=== PATIENT | female | born 1940 | race Caucasian/White ===

== ENCOUNTER 2017-12-11 05:38 | Day surgery (SDC) | payer MEDICARE, MEDICAID ==
[~2017-12-11] VITALS: Ht 160 cm; Wt 100.7 kg
[~2017-12-11 05:38] MED LIST: ALBUAER3 IN; CETI1TAB36 PO; CHOL500021 OR; DIPH50CA31 OR; DOCU-55 PO; DOCU1CAP31 PO; DONE5TAB31 PO; FERR-20 PO; HYDR-3682 PO; HYDR-531 PO; LISI-275 PO; METF-370 PO; METH500T6 PO; MIRA25TA OR; NAS17NSL; OMEP20TA PO; SIME80CH6 PO
[2017-12-11] MEDS ORDERED: CLINDAMYCIN 600MG IV 50 ML IV ONE (07:15)
[2017-12-11] MEDS ORDERED: LIDOCAINE 1% HCL (LOCAL ANESTH.) INJ 20ML MDV ONE (07:18)
[2017-12-11] MEDS ORDERED: SUCCINYLCHOLINE CHLORIDE 20 MG/ML 10ML VIAL IV ONE (07:19)
[2017-12-11] MEDS ORDERED: BUPIVACAINE 0.25% INJ 50ML VIAL ONE (07:20)
[2017-12-11] MEDS ORDERED: MIDAZOLAM HCL 1MG/1ML-2 ML VIAL ONE (07:21)
[2017-12-11] MEDS ORDERED: PROPOFOL 10 MG/ML 20 ML IV ONE (07:21)
[2017-12-11] MEDS ORDERED: ROCURONIUM 10MG/ML 10ML VIAL IV ONE (07:21)
[2017-12-11] MEDS ORDERED: ePHEDrine SULFATE 50 MG/ML AMP ONE (07:37)
[2017-12-11] MEDS ORDERED: ACCU-CHEK COMFORT CURVE STRIP VI ONE (07:45)
[2017-12-11] MEDS ORDERED: ePHEDrine SULFATE 50 MG/ML AMP IV PRN (07:45)
[2017-12-11] MEDS ORDERED: ONDANSETRON HCL 4 MG/2 ML VIAL IV ONE (07:45)
[2017-12-11] MEDS ORDERED: NALOXONE HCL 0.4 MG/ML VIAL IV PRN (07:45)
[2017-12-11] MEDS ORDERED: fentaNYL CITRATE 100 MCG/2 ML VL ONE (07:48)
[2017-12-11] MEDS ORDERED: GLYCOPYRROLATE 0.2 MG/ML 1ML VIAL ONE (08:01)
[2017-12-11] MEDS ORDERED: NEOSTIGMINE 1 MG/ML INJ (10mg/10ML VIAL) ONE (08:01)
[2017-12-11 09:00] VITALS: BP 111/81
[2017-12-11] MEDS ORDERED: fentaNYL CITRATE 100 MCG/2 ML VL IV ONE (10:00)
== END 2017-12-11 09:15 | disposition home or self-care (01) ==
LOC: SUR 05:38
PROVIDERS: ATTEND Orthopaedic Surgery Adult Reconstructive Orthopaedic Surgery
DX: G56.02 Carpal tunnel syndrome, left upper limb (principal); E66.01 Morbid (severe) obesity due to excess calories; J45.909 Unspecified asthma, uncomplicated; E11.9 Type 2 diabetes mellitus without complications; D64.9 Anemia, unspecified; M19.90 Unspecified osteoarthritis, unspecified site; G47.33 Obstructive sleep apnea (adult) (pediatric); K21.9 Gastro-esophageal reflux disease without esophagitis; Z88.6 Allergy status to analgesic agent; Z68.39 Body mass index [BMI] 39.0-39.9, adult; Z88.1 Allergy status to other antibiotic agents; Z79.891 Long term (current) use of opiate analgesic; Z79.01 Long term (current) use of anticoagulants; Z79.2 Long term (current) use of antibiotics; Z79.899 Other long term (current) drug therapy; Z79.84 Long term (current) use of oral hypoglycemic drugs; Z83.3 Family history of diabetes mellitus; Z82.49 Family history of ischemic heart disease and other diseases of the circulatory system; Z90.49 Acquired absence of other specified parts of digestive tract
CPT/HCPCS: 29848; 82962; J0330; J2001; J2250; J2405; J2704; J3010; J3490

== ENCOUNTER 2019-03-08 19:23 | Inpatient (IN) | payer MEDICARE, MEDICAID | END 2019-03-16 17:09 | disposition home or self-care (01) | LOC: TELE 19:24 → TELE-CENTR 03-09 13:47 → ER 19:23 | PROC: B41G1ZZ Fluoroscopy of Left Lower Extremity Arteries using Low Osmolar Contrast (ICD-10-PCS; principal; ~2019-03-08) | PROC: B41F1ZZ Fluoroscopy of Right Lower Extremity Arteries using Low Osmolar Contrast (ICD-10-PCS; ~2019-03-08) | DX: I73.9 Peripheral vascular disease, unspecified (principal); N17.0 Acute kidney failure with tubular necrosis; I50.43 Acute on chronic combined systolic (congestive) and diastolic (congestive) heart failure; L03.116 Cellulitis of left lower limb; I13.0 Hypertensive heart and chronic kidney disease with heart failure and stage 1 through stage 4 chronic kidney disease, or unspecified chronic kidney disease; E11.51 Type 2 diabetes mellitus with diabetic peripheral angiopathy without gangrene; E11.22 Type 2 diabetes mellitus with diabetic chronic kidney disease; L03.115 Cellulitis of right lower limb; Z79.84 Long term (current) use of oral hypoglycemic drugs; I25.10 Atherosclerotic heart disease of native coronary artery without angina pectoris; Z95.5 Presence of coronary angioplasty implant and graft; N18.3 Chronic kidney disease, stage 3 (moderate); D50.9 Iron deficiency anemia, unspecified; E78.5 Hyperlipidemia, unspecified ==

== ENCOUNTER → 2019-05-28 | Outpatient (CLI) | payer MEDICARE, MEDICAID ==
[~2019-05-28] VITALS: Ht 30.5 cm; Wt 0.5 kg
[~2019-05-28] MED LIST changes: +ASPI325T4 PO; +BACITRACIN TOP OINT 1 UD PKG TOP ONE; +CYANOCOBALAMIN (B-12) 1000 MCG/1 ML VIAL IM ONE; +CYANOCOBALAMIN (B-12) 1000 MCG/1 ML VIAL ONE; -DIPH50CA31 OR; +GABA100C9 PO; +GLYB2.5T8 PO; -METF-370 PO; +RANI300C7 PO; +TICA90TA PO; +VANCOMYCIN 1GM/250ML 250 ML IV ONE; +cefTRIAXone 1GM/50ML D5W 50 ML IV ONE
[2019-05-28 11:00] VITALS: BP 129/55
--- NOTE | 2019-05-28 11:00 | NUR ---
CHF PT ARRIVED AT THE [facility]F CLINIC FROM BACK OFFICE FOR ANTIBIOTIC THERAPY AND UNNA BOOTS. PT APPEARS TO HAVE CELLULITIS ON LEGS WILL BE IN CLINIC FOR ANTIBIOTIC THERAPY OVER THE NEXT WEEK
--- NOTE | 2019-05-28 11:15 | NUR ---
IV insertion IV access obtained, via clean sterile technique by inserting 22 gauge catheter at after attempt(s). IV secured properly. No trauma to site. Patient tolerated procedure well.
--- NOTE | 2019-05-28 12:00 | NUR ---
Wound Care Wound care provided per MD order. Patient tolerated well and verbalized dressing care instructions. Follow up in clinic as directed. See e-MAR for medications given during this visit. UNNA BOOTS APPLIED BILATERALLY PT TOLERATED WELL
[2019-05-28 12:04] LABS: Basophils # (auto) 0.1 uL; Eosinophils # (auto) 0.3 uL; Lymphocytes # (auto) 1.3 uL; Monocytes # (auto) 0.7 uL; Platelet Count (auto) 238 10^3/uL (140-450); Red Blood Cells 3.39 10^6/uL (4.0-5.20)
[2019-05-28 12:12] LABS: Eosinophils % (auto) 5.7 % (0.0-7.0); Hematocrit 26.8 % (36.0-46.0); Hemoglobin 8.9 g/dL (12.2-16.2); Lymphocytes % (auto) 24.7 % (10.0-50.0); Mean Corpuscular Hemoglobin 26.1 pg (28.0-32.0); Mean Corpuscular Volume 79.2 fL (80.0-100.0); Monocytes % (auto) 12.4 % (0.0-12.0); Neutrophils % (auto) 55.2 % (37.0-80.0); Red Cell Distribution Width 14.1 % (11.8-14.3); White Blood Cell 5.5 10^3/uL (4.4-10.8)
[2019-05-28 12:17] LABS: BUN/Creatinine Ratio 22.9; Calcium 8.6 mg/dL (8.5-10.1); Magnesium 2.5 mg/dL (1.6-2.6); Potassium 4.9 mmol/L (3.5-5.1)
--- NOTE | 2019-05-28 13:50 | NUR ---
IV removal IV DC'd with sterile technique, catheter fully intact. Pressure dressing applied to site. Patient tolerated procedure well. Discharged with aftercare instructions per MD. NOTE:
[2019-05-28 13:58] VITALS: BP 127/71
--- NOTE | 2019-05-28 13:58 | NUR ---
Discharge Instructions See e-MAR for any mediations given with this visit. Patient education given on disease process. Patient verbalized understanding. Previous labs reviewed. Patient discharged in stable condition with after care instructions and follow up appointment[place] [id number] [place] IV [id number] VITAMIN B12 IM LOT # [id number] EXP 01/13 UNNA BOOTS APPLIED BILATERALLY
== END | disposition home or self-care (01) ==
LOC: CHF HDHVI 10:59
PROVIDERS: ATTEND Internal Medicine
DX: D64.9 Anemia, unspecified (principal); R60.0 Localized edema; R53.83 Other fatigue; K90.9 Intestinal malabsorption, unspecified; I11.0 Hypertensive heart disease with heart failure; I50.9 Heart failure, unspecified; Z79.899 Other long term (current) drug therapy
CPT/HCPCS: 36415; 80048; 82306; 83036; 83735; 85025; 96365; 96367; 96372; G0463; J0696; J3370; J3420; 96375

== ENCOUNTER → 2019-05-29 | Outpatient (CLI) | payer MEDICARE, MEDICAID ==
[~2019-05-29] MED LIST changes: -BACITRACIN TOP OINT 1 UD PKG TOP ONE; -CYANOCOBALAMIN (B-12) 1000 MCG/1 ML VIAL IM ONE; -CYANOCOBALAMIN (B-12) 1000 MCG/1 ML VIAL ONE; -VANCOMYCIN 1GM/250ML 250 ML IV ONE
[2019-05-29 09:50] VITALS: BP 122/59
--- NOTE | 2019-05-29 09:50 | NUR ---
CHF PT IN CHF CLINIC FOR TX AND FOLLOW UP. STAT LABS DONE AND ULTRASOUND SCHEDULED FOR LOWER EXTREMITIES. A/O X 4 O DISTRESS
--- NOTE | 2019-05-29 10:10 | NUR ---
IV insertion IV access obtained, via clean sterile technique by inserting 22 gauge catheter at after attempt(s). IV secured properly. No trauma to site. Patient tolerated procedure well.
[2019-05-29 10:52] LABS: Eosinophils # (auto) 0.3 uL; Lymphocytes # (auto) 1.3 uL; Lymphocytes % (auto) 23.6 % (10.0-50.0); Mean Corpuscular Hgb Conc. 32.7 g/dL (32.0-36.0); Monocytes # (auto) 0.6 uL; Nucleated Red Blood Cells % 0.1 %
[2019-05-29 10:54] LABS: Basophils # (auto) 0.2 uL; Basophils % (auto) 3.3 % (0.0-2.0); Hematocrit 27.5 % (36.0-46.0); Mean Corpuscular Hemoglobin 26.2 pg (28.0-32.0); Mean Corpuscular Volume 80.3 fL (80.0-100.0); Monocytes % (auto) 10.7 % (0.0-12.0); Neutrophils % (auto) 56.4 % (37.0-80.0); Platelet Count (auto) 252 10^3/uL (140-450); Red Blood Cells 3.42 10^6/uL (4.0-5.20); Red Cell Distribution Width 14.4 % (11.8-14.3); White Blood Cell 5.4 10^3/uL (4.4-10.8)
[2019-05-29 11:01] LABS: Magnesium 2.4 mg/dL (1.6-2.6); Potassium 4.7 mmol/L (3.5-5.1)
--- NOTE | 2019-05-29 12:45 | NUR ---
IV removal IV DC'd with sterile technique, catheter fully intact. Pressure dressing applied to site. Patient tolerated procedure well. Discharged with aftercare instructions per MD. NOTE:
[2019-05-29 12:47] VITALS: BP 107/38
--- NOTE | 2019-05-29 12:47 | NUR ---
Discharge Instructions See e-MAR for any mediations given with this visit. Patient education given on disease process. Patient verbalized understanding. Previous labs reviewed. Patient discharged in stable condition with after care instructions and follow up appointment. MEDICATIONS ROCEPHIN IVPB [id number] HEPARIN IVP
== END | disposition home or self-care (01) ==
LOC: CHF HDHVI 09:49
PROVIDERS: ATTEND Internal Medicine
DX: I11.0 Hypertensive heart disease with heart failure (principal); I50.9 Heart failure, unspecified; E87.6 Hypokalemia; R00.2 Palpitations; R94.4 Abnormal results of kidney function studies; D64.9 Anemia, unspecified; Z79.899 Other long term (current) drug therapy
CPT/HCPCS: 36415; 82565; 83735; 84132; 84520; 85025; 96365; G0463; J0696; J1642

== ENCOUNTER → 2019-05-30 | Outpatient (CLI) | payer MEDICARE, MEDICAID ==
[~2019-05-30] MED LIST changes: +cefTRIAXone SOD 1,000 MG VL ONE
[2019-05-30 09:45] VITALS: BP 106/40
--- NOTE | 2019-05-30 09:45 | NUR ---
CHF PT ARRIVED AT THE CHF CLINIC FOR TX AND EVAL ANTIBIOTIC THERAPY. A/O X 4 0 DISTRESS. IV TO RIGHT ARM PATENT
[2019-05-30 10:35] VITALS: BP 109/43
--- NOTE | 2019-05-30 10:35 | NUR ---
Discharge Instructions See e-MAR for any mediations given with this visit. Patient education given on disease process. Patient verbalized understanding. Previous labs reviewed. Patient discharged in stable condition with after care instructions and follow up appointment. MEDICATIONS [place] IV [id number] HEPARIN IVP
== END | disposition home or self-care (01) ==
LOC: CHF HDHVI 09:43
PROVIDERS: ATTEND Internal Medicine Cardiovascular Disease
DX: L03.90 Cellulitis, unspecified (principal); I11.0 Hypertensive heart disease with heart failure; I50.9 Heart failure, unspecified; Z79.899 Other long term (current) drug therapy
CPT/HCPCS: 96365; G0463; J0696; J1642

== ENCOUNTER → 2019-05-31 | Outpatient (CLI) | payer MEDICARE ==
[~2019-05-31] VITALS: Ht 165.1 cm; Wt 94.8 kg
[~2019-05-31] MED LIST changes: +LIDOCAINE 1% (LOCAL ANESTH.) PF 5ml SDV ONE
[2019-05-31 09:50] VITALS: BP 117/55
--- NOTE | 2019-05-31 10:30 | NUR ---
IV removal IV DC'd with sterile technique, catheter fully intact. Pressure dressing applied to site. Patient tolerated procedure well.
[2019-05-31 10:35] VITALS: BP 112/53
--- NOTE | 2019-05-31 10:35 | NUR ---
[facility] CL[facility] Discharge Instructions See e-MAR for any mediations given with this visit. Patient education given on disease process. Patient verbalized understanding. Previous labs reviewed. Patient discharged in stable condition with after care instructions and follow up appointment. NOTE JOHN IVP ADMIN BY GIANCARLO FLOREZ.
== END | disposition home or self-care (01) ==
LOC: CHF HDHVI 09:33
PROVIDERS: ATTEND Internal Medicine
DX: L03.90 Cellulitis, unspecified (principal); I11.0 Hypertensive heart disease with heart failure; I50.9 Heart failure, unspecified; Z79.899 Other long term (current) drug therapy
CPT/HCPCS: 96374; G0463; J0696

== ENCOUNTER → 2019-06-03 | Outpatient (CLI) | payer MEDICARE, MEDICAID ==
[~2019-06-03] VITALS: Ht 30.5 cm; Wt 94.8 kg
[~2019-06-03] MED LIST changes: +BACITRACIN TOP OINT 1 UD PKG TOP ONE; -LIDOCAINE 1% (LOCAL ANESTH.) PF 5ml SDV ONE; -cefTRIAXone SOD 1,000 MG VL ONE
[2019-06-03 09:15] VITALS: BP 131/54
--- NOTE | 2019-06-03 09:15 | NUR ---
IV insertion IV access obtained, via clean sterile technique by inserting 22 gauge catheter at LAC after 1 attempt(s). IV secured properly. No trauma to site. Patient tolerated procedure well.
--- NOTE | 2019-06-03 10:30 | NUR ---
IV removal IV DC'd with sterile technique, catheter fully intact. Pressure dressing applied to site. Patient tolerated procedure well.
[2019-06-03 10:36] VITALS: BP 106/48
--- NOTE | 2019-06-03 10:36 | NUR ---
[facility] CL[facility] Discharge Instructions See e-MAR for any mediations given with this visit. Patient education given on disease process. Patient verbalized understanding. Previous labs reviewed. Patient discharged in stable condition with after care instructions and follow up appointment. NOTE JOHN [id number] ADMIN BY JOBY FLOREZ BACITRACIN APPLIED TO WOUND AREA BILAT TIP BOOTS APPLIED DR FUNEZ WITH DR PEARSON ON 06/04/19 AT 0945
[2019-06-03 11:12] LABS: Basophils # (auto) 0.1 uL; Basophils % (auto) 2.2 % (0.0-2.0); Lymphocytes # (auto) 1.2 uL; Monocytes # (auto) 0.6 uL; Neutrophils # (auto) 2.8 uL
[2019-06-03 11:14] LABS: Eosinophils # (auto) 0.2 uL; Eosinophils % (auto) 4.9 % (0.0-7.0); Hematocrit 28.9 % (36.0-46.0); Hemoglobin 9.3 g/dL (12.2-16.2); Lymphocytes % (auto) 24.6 % (10.0-50.0); Mean Corpuscular Hemoglobin 25.6 pg (28.0-32.0); Mean Corpuscular Hgb Conc. 32.1 g/dL (32.0-36.0); Mean Corpuscular Volume 79.7 fL (80.0-100.0); Neutrophils % (auto) 56.3 % (37.0-80.0); Platelet Count (auto) 280 10^3/uL (140-450); Red Blood Cells 3.62 10^6/uL (4.0-5.20); Red Cell Distribution Width 14.6 % (11.8-14.3)
[2019-06-03 11:17] LABS: Albumin 3.5 g/dL (3.4-5.0); Potassium 4.6 mmol/L (3.5-5.1)
[2019-06-03 11:20] LABS: BUN/Creatinine Ratio 22.5; Bilirubin, Total 0.3 mg/dL (0.2-1.0); Total Protein 9.2 g/dL (6.4-8.2)
== END | disposition home or self-care (01) ==
LOC: CHF HDHVI 09:13
PROVIDERS: ATTEND Internal Medicine Cardiovascular Disease
DX: L03.90 Cellulitis, unspecified (principal); D64.9 Anemia, unspecified; I10 Essential (primary) hypertension; R60.0 Localized edema; Z79.899 Other long term (current) drug therapy
CPT/HCPCS: 36415; 80053; 85025; 96365; G0463; J0696

== ENCOUNTER → 2020-04-07 | Outpatient (CLI) | payer MEDICARE, MEDICAID ==
[~2020-04-07] MED LIST changes: -BACITRACIN TOP OINT 1 UD PKG TOP ONE; +METH500T22 PO; -METH500T6 PO; -cefTRIAXone 1GM/50ML D5W 50 ML IV ONE
== END | disposition home or self-care (01) ==
LOC: Rad HDHVI 09:14
PROVIDERS: ATTEND Internal Medicine Cardiovascular Disease
DX: I08.8 Other rheumatic multiple valve diseases (principal); I25.10 Atherosclerotic heart disease of native coronary artery without angina pectoris; R07.89 Other chest pain
CPT/HCPCS: 93306

== ENCOUNTER → 2020-04-09 | Outpatient (CLI) | payer MEDICARE, MEDICAID ==
[~2020-04-09] VITALS: Ht 160 cm; Wt 100.2 kg
[~2020-04-09] MED LIST changes: +ADENOSINE 84 MG in GIVE UN-DILUTED 0 ML IV ONE; +ADENOSINE 90 MG/30 ML INJ IV ONE
== END | disposition home or self-care (01) ==
LOC: Rad HDHVI 08:01
PROVIDERS: ATTEND Internal Medicine Cardiovascular Disease
DX: I25.10 Atherosclerotic heart disease of native coronary artery without angina pectoris (principal); E11.22 Type 2 diabetes mellitus with diabetic chronic kidney disease; I12.9 Hypertensive chronic kidney disease with stage 1 through stage 4 chronic kidney disease, or unspecified chronic kidney disease; N18.9 Chronic kidney disease, unspecified; E11.40 Type 2 diabetes mellitus with diabetic neuropathy, unspecified; J44.9 Chronic obstructive pulmonary disease, unspecified; R07.9 Chest pain, unspecified; R06.02 Shortness of breath; Z82.49 Family history of ischemic heart disease and other diseases of the circulatory system
CPT/HCPCS: 78452; 93005; 96374; 96375; A9500; J0153